=== PATIENT | male | born 1955 | race Caucasian/White ===

== ENCOUNTER → 2018-10-28 | Outpatient (CLI) | payer MEDICARE, MEDICAID | END | disposition home or self-care (01) | LOC: CFH 08:56 | DX: Z12.2 Encounter for screening for malignant neoplasm of respiratory organs (principal); K86.89 Other specified diseases of pancreas; F17.210 Nicotine dependence, cigarettes, uncomplicated; Z90.49 Acquired absence of other specified parts of digestive tract | CPT/HCPCS: G0297 ==

== ENCOUNTER → 2018-11-16 | Outpatient (CLI) | payer MEDICARE, MEDICAID ==
[~2018-11-16] MED LIST: ASPI-496 PO; ATEN25TA PO; DIVA500T2 PO; LITH300T3 PO; OMNIPAQUE 350 MG/ML, 100ML BOTTLE ONE
== END | disposition home or self-care (01) ==
LOC: CFH 07:33
PROVIDERS: ATTEND Physician Assistant
DX: K86.89 Other specified diseases of pancreas (principal)
CPT/HCPCS: 74177; Q9967

== ENCOUNTER 2018-11-17 10:24 | Emergency (ER) | payer MEDICAID, MEDICARE ==
[~2018-11-17] VITALS: Ht 180.3 cm; Wt 84.0 kg
[2018-11-17 10:34] VITALS: BP 147/78
[2018-11-17] MEDS ORDERED: LITH300T3 PO (10:38)
[2018-11-17] MEDS ORDERED: DIVA500T2 PO (10:38)
[2018-11-17] MEDS ORDERED: ATEN25TA PO (10:38)
[2018-11-17] MEDS ORDERED: ASPI-496 PO (10:38)
--- NOTE | 2018-11-17 10:44 | NUR ---
pt sharon remsa after being referred to ed by pcp sergey on [address]. pt states results from yesterday's abd ct with contrast showed masses on pancreas and broken blood vessels. pt was told to come to ed immediately. pt denies n/v/d, fever, chills and abd pain at this time. connected to monitors. vss. no needs expressed. call light within reach. awaiting edmd assessment.
--- NOTE | 2018-11-17 11:22 | NUR ---
DARCY RN: THIS RN OBSERVED PT YELLING TA PRIMARY RN CHELSEY BECAUSE HE DOES NOT HAVE A PHONE IN HIS ROOM, STATING "YOU ARE NO MOTHER HARPREET". CHELSEY WAS ATTEMPTING TO DIRECT PT TO PHONE AT NURSES STATION. CLARITY DEVELOPER DENA ADDRESSED PT RIGHT AWAY ATTEMTPING TO DEESCALATE AND FOLLOWING SERVICE RECOVERY GUIDELINES. PT BECAME BELEGERNT WITH SUPERVISIOR, REFUSED TO SIGN AMA PAPERWORK.
--- NOTE | 2018-11-17 11:25 | NUR ---
pt requesting ice chips, pillow and access to a phone. rn stated ice chips and a pillow can be provided, but it would be a few minutes, and that a phone would be available to use at the discharge desk, or if he preferred to use the phone sooner, this rn would show the pt where the phone was located in a few minutes. pt became upset that the word "discharge" was used. pt began yelling, "stop using discharge! I don't want to hear that!" rn left room to verify that pt could have ice chips with md. pt then got himself dressed and met this rn at the nurse station. pt was asked to sign ama form before leaving. pt stated that he would not sign the form until he was able to speak wtih the registered nursing professor. ed pattern marking supervisor was present and began talking with pt. pt stated it took too long for his call light to be answered and that he needed to use the phone to call his human factors engineer. pt was offered use of the phone at this time and proceeded to make a call. this rn placed ama form near pt for him to sign and exited the area.
== END 2018-11-17 11:39 | disposition left against medical advice (07) ==
LOC: ED 11:33
DX: C25.9 Malignant neoplasm of pancreas, unspecified (principal); F17.200 Nicotine dependence, unspecified, uncomplicated
CPT/HCPCS: 99283

== ENCOUNTER 2019-01-20 08:57 | Emergency (ER) | payer MEDICARE ==
[~2019-01-20] VITALS: Ht 180.3 cm; Wt 96.0 kg
[~2019-01-20 08:57] MED LIST changes: -OMNIPAQUE 350 MG/ML, 100ML BOTTLE ONE
--- NOTE | 2019-01-20 09:00 | NUR ---
BIB AMBULANCE FROM THE [place] WHERE PT WAS ALLEGEDLY GOING TO BE 87/REMOVED FROM [facility], PT STATES "I CAME IN BECAUSE I'M HAVING STOMACH PAIN, NAUSEA, NO VOMITING OR DIARRHEA, TOLD ME I HAVE PANCREATIC CANCER IN NOVEMBER THAT HAS SPREAD AND I'M HAVING PEDI-MAL SEIZURES TOO, I THOUGHT I WAS GOING TO BECAUSE MY CANCER." DENIES ETOH/DRUG USE. A&OX4. SEIZURE PADS/PRECAUTIONS IN PLACE. CONT PULSE OX, BP, CARDIAC MONTITORS IN PLACE. RATES ABD PAIN 10/10, ALL QUADRANTS TENDER TO PALPATION PER PT. DENIES V/D, CP, SOB, DIZZINESS, LASSITER, VISUAL CHANGES OR ANY URINARY PAIN OR DIFFICULTY. AWAITING EVAL BY ERP. CALL LIGHT IN REACH. FALL PRECAUTIONS IN PLACE. PT REPORTS NON-COMPLIANCE WITH ALL MEDICATIONS "FOR A FEW DAYS NOW, HAVEN'T BEEN TAKING MY BLOOD PRESSURE MEDS OR DEPAKOTE."
--- NOTE | 2019-01-20 09:10 | NUR ---
ERP AT BEDSIDE FOR EVALUATION
--- NOTE | 2019-01-20 09:20 | NUR ---
PT CONTINUOUS TOUCHING GENITALS AND STICKING HANDS DOWN PANTS. PT ASKED THIS RN "TO APPLY LIGHT PRESSURE TO MY THIGH, IT WON'T BE INAPPROPRIATE OR ANYTHING, I JUST NEED TO GET SOMETHING OUT OF POCKET." WHILE PT ASKING THIS HAND WAS DOWN PANTS. THIS RN AND FEMALE RESIDENT/STUDENT MD EXPLAINED TO PT THAT BEHAVIOR/STATEMENTS ARE INAPPROPRIATE AND PT APOLOGIZED.
--- NOTE | 2019-01-20 09:42 | NUR ---
BEDSIDE REPORT AND CARE TO SHANTAL GUSMAN AT THIS TIME
--- NOTE | 2019-01-20 09:46 | NUR ---
PER DR MARROQUIN DISCUSSION OF PT TOUCHING GENITALS BEING INNAPPROPRIATE TOOK PLACE. PT APOLOGIZING FOR ACTION. DISCUSSION REINFORCED TO PT AND AT THIS TIME MD TO CONSULT HOSPICE.
[2019-01-20 10:00] LABS: BASOPHILS # (AUTO) 0.04 x10^3/uL (0-0.1); BASOPHILS % (AUTO) 1 % (0-1); EOSINOPHILS # (AUTO) 0.07 x10^3/uL (0-0.4); EOSINOPHILS % (AUTO) 1 % (1-7); LYMPHOCYTES # (AUTO) 2.77 x10^3/uL (1-3.4); LYMPHOCYTES % (AUTO) 45 % (22-44); MD NO; MEAN CORPUSCULAR HEMOGLOBIN 29.3 pg (27.5-34.5); MEAN CORPUSCULAR HGB CONC 32.4 g/dL (33.2-36.2); MEAN CORPUSCULAR VOLUME 90.4 fL (81-97); MEAN PLATELET VOLUME 7.2 fL (7.4-10.4); MONOCYTES # (AUTO) 0.52 x10^3/uL (0.2-0.8); MONOCYTES % (AUTO) 8 % (2-9); NEUTROPHILS # (AUTO) 2.78 x10^3/uL (1.8-6.8); NEUTROPHILS % (AUTO) 45 % (42-75); PLATELET COUNT 195 x10^3/uL (130-400); RED CELL DISTRIBUTION WIDTH 15.2 % (9.4-14.8)
[2019-01-20 10:03] LABS: ALANINE AMINOTRANSFERASE 23 U/L (12-78); ALBUMIN 3.3 g/dL (3.4-5.0); ANION GAP 8 mmol/L (5-15); CALCIUM 8.9 mg/dL (8.5-10.1); CHLORIDE 105 mmol/L (98-107); CREATININE 1.55 mg/dL (0.7-1.3)
[2019-01-20 10:05] LABS: ALKALINE PHOSPHATASE 114 U/L (45-117); BILIRUBIN,TOTAL 0.6 mg/dL (0.2-1.0); TOTAL PROTEIN 7.6 g/dL (6.4-8.2)
[2019-01-20 10:31] VITALS: BP 125/73
--- NOTE | 2019-01-20 11:10 | NUR ---
PT FOUND TO BE SMOKING IN BEDROOM. CIGARETTE WAS EXTINGIUSHED AND 2 PACKS OF CIGARETTES COLLECTED WITH BLUEPRINT REPRODUCER. PT EDUCATED ON THE DANGERS OF SMOKING IN A HOSPITAL AND THE RISKS TO HIMSELF AND OTHERS HERE.
== END 2019-01-20 12:30 | disposition home or self-care (01) ==
LOC: ED 10:30
DX: K85.00 Idiopathic acute pancreatitis without necrosis or infection (principal); I10 Essential (primary) hypertension; C25.9 Malignant neoplasm of pancreas, unspecified; F31.9 Bipolar disorder, unspecified; E11.9 Type 2 diabetes mellitus without complications
CPT/HCPCS: 36415; 80053; 83690; 85025; 99283